=== PATIENT | male | born 1955 | race Hispanic/Latino ===

== ENCOUNTER 2020-01-29 11:03 | Outpatient (CLI) | payer MEDICARE ==
--- NOTE | 2020-01-29 11:19 | ULT ---
US Renal Bilateral STANDARD History: Renal failure Comparison: None Findings: Real-time grayscale and color evaluation of the kidneys and urinary bladder was performed. The right kidney measures 11.5 x 5.8 x 7.4 cm and the left kidney measures 10.3 x 5.5 x 6.4 cm. There is a septated cyst inferior pole right kidney measuring up to 2.1 cm. No mass, abnormal calcifications or hydronephrosis of either kidney. Urinary bladder volume is 113 mL. Impression: No evidence for obstructive uropathy.
== END 2020-01-29 11:04 | disposition home or self-care (01) ==
LOC: BICULT 11:03
PROVIDERS: ATTEND Internal Medicine Nephrology
DX: N18.3 Chronic kidney disease, stage 3 (moderate) (principal)
CPT/HCPCS: 76770

== ENCOUNTER 2022-12-12 20:41 | Inpatient (IN) | payer MEDICARE ==
[2022-12-12] MEDS ORDERED: Acetaminophen 500 MG TAB ONE (22:08)
[2022-12-12 22:41] LABS: #Monocytes 1.9 thou/uL (0.11-0.59); #Neutrophils 12.9 thou/uL (1.40-6.50); %Basophils 0.2 % (0.0-1.0); %Eosinophils 0.1 % (0.0-10.0); %Lymphocytes 8.8 % (21.0-51.0); %Monocytes 11.9 % (0.0-10.0); %Neutrophils 78.6 % (42.0-75.0); Hematocrit 32.5 % (42.0-52.0); Hemoglobin 10.3 g/dL (14.0-18.0); Mean Corpuscular HGB CONC 31.7 g/dL (32.0-36.0); Mean Corpuscular Hemoglobin 28.6 pg (27.0-31.0); Mean Corpuscular Volume 90.3 fl (78.0-98.0); Mean Platelet Volume 10.1 fL (7.4-10.4); Platelet Count 268 10x3/uL (130-400); RBC Distribution Width 14.4 % (11.5-14.5); White Blood Cell (WBC) Count 16.4 10x3/uL (4.8-10.8)
[2022-12-12 23:10] LABS: ALT (SGPT) 10 U/L (8-55); AST (SGOT) 22 U/L (5-34); Albumin 3.8 g/dL (3.4-4.8); Alkaline Phosphatase 84 U/L (40-110); Anion Gap 12 mmol/L (10-20); BUN (Urea Nitrogen) 23 mg/dL (8.4-25.7); Bilirubin, Total 0.8 mg/dL (0.2-1.2); Calc. Creatinine Clearance 0 mL/min (70-130); Calcium 8.8 mg/dL (7.8-10.44); Carbon Dioxide 25 mmol/L (23-31); Chloride 101 mmol/L (98-107); Estimated GFR 35; Globulin 3.4 g/dL (2.4-3.5); Glucose 135 mg/dL (80-115); Potassium 3.9 mmol/L (3.5-5.1); Protein, Total 7.2 g/dL (5.8-8.1); Sodium 134 mmol/L (136-145)
[2022-12-12] MEDS ORDERED: Lidocaine 1% w/Epinephrine 1:100K 20 ML VIAL ONE (23:46)
[2022-12-12] MEDS ORDERED: Cefepime 2 GM VIAL ONE (23:46)
[2022-12-12] MEDS ORDERED: Morphine 4 MG/ML VIAL ONE (23:46)
[2022-12-13 01:28] LABS: CKMB 1.5 ng/mL (0-6.6)
[2022-12-13] MEDS ORDERED: Dextrose 5% in Water 1,000 ML IV PRN (02:14)
[2022-12-13] MEDS ORDERED: Glucagon 1 MG/ML KIT IM PRN (02:14)
[2022-12-13] MEDS ORDERED: Dextrose 50% Abboject 50 ML SYRINGE SLOW IVP PRN (02:14)
[2022-12-13] MEDS ORDERED: Furosemide 20 MG/2 ML VIAL SLOW IVP SCH (02:15)
[2022-12-13 04:20] LABS: Hematocrit 32.1 % (42.0-52.0); Hemoglobin 10.1 g/dL (14.0-18.0); Mean Corpuscular HGB CONC 31.5 g/dL (32.0-36.0); Mean Corpuscular Hemoglobin 28.5 pg (27.0-31.0); Mean Corpuscular Volume 90.4 fl (78.0-98.0); Mean Platelet Volume 10.4 fL (7.4-10.4); Platelet Count 259 10x3/uL (130-400); RBC Distribution Width 14.4 % (11.5-14.5); Red Blood Cell (RBC) Count 3.55 mill/uL (4.70-6.10); White Blood Cell (WBC) Count 14.6 10x3/uL (4.8-10.8)
[2022-12-13 04:57] LABS: ALT (SGPT) 10 U/L (8-55); AST (SGOT) 23 U/L (5-34); Albumin 3.6 g/dL (3.4-4.8); Alkaline Phosphatase 81 U/L (40-110); Anion Gap 16 mmol/L (10-20); BUN (Urea Nitrogen) 24 mg/dL (8.4-25.7); Bilirubin, Total 0.6 mg/dL (0.2-1.2); Calc. Creatinine Clearance 0 mL/min (70-130); Calcium 8.8 mg/dL (7.8-10.44); Carbon Dioxide 22 mmol/L (23-31); Chloride 103 mmol/L (98-107); Estimated GFR 33; Glucose 116 mg/dL (80-115); Potassium 3.8 mmol/L (3.5-5.1); Protein, Total 7.6 g/dL (5.8-8.1); Sodium 137 mmol/L (136-145)
[2022-12-13 05:04] LABS: CKMB 2.7 ng/mL (0-6.6)
[2022-12-13] MEDS ORDERED: Iopamidol-370 76% 500 ML MDV (1 ML CHARGE) ONE (08:42)
[2022-12-13 09:10] LABS: CKMB 2.9 ng/mL (0-6.6)
[2022-12-13] MEDS ORDERED: Furosemide 40 MG/4 ML VIAL ONE (09:47)
[2022-12-13] MEDS: hydrALAZINE 25 MG TAB PO SCH ×3 (10:57→21:15)
[2022-12-13] MEDS: NIFEdipine XL 30 MG TAB PO SCH ×2 (10:57→16:53)
[2022-12-13] MEDS: Gabapentin 100 MG CAP PO SCH ×2 (10:57→21:15)
[2022-12-13] MEDS: Torsemide 20 MG TAB PO SCH ×2 (10:57→16:53)
[2022-12-13] MEDS ORDERED: Cefepime 2 GM in Sodium Chloride 0.9% 100 ML IVPB SCH (12:00)
[2022-12-13] MEDS ORDERED: Colchicine 0.6 MG TAB PO SCH ×3 (12:00→13:00)
[2022-12-13] MEDS ORDERED: Cefepime 2 GM VIAL ONE (14:05)
[2022-12-13 15:13] LABS: CKMB 3.1 ng/mL (0-6.6)
[2022-12-13] MEDS ORDERED: HYDROcodone/Acetaminophen 5/325 mg Tablet PO SCH (17:30)
[2022-12-13 18:34] VITALS: BMI 48.6
[2022-12-13 23:19] LABS: CKMB 2.6 ng/mL (0-6.6)
[2022-12-13] MEDS: HYDROcodone/Acetaminophen 5/325 mg Tablet PO PRN (23:36)
[2022-12-13] MEDS: Cefepime 1 GM in Sodium Chloride 0.9% 100 ML IVPB SCH (23:39)
[2022-12-14] MEDS ORDERED: VANCOMYCIN 2 GRAM/500 ML BAG 2 GM in Premix Bag 1 BAG IVPB SCH (01:00)
[2022-12-14] MEDS: HYDROcodone/Acetaminophen 5/325 mg Tablet PO PRN ×3 (05:11→20:51)
[2022-12-14] MEDS ORDERED: Lidocaine 1% (PF) 30 ML VIAL SC SCH (07:30)
[2022-12-14] MEDS: NIFEdipine XL 30 MG TAB PO SCH (10:50)
[2022-12-14] MEDS: hydrALAZINE 25 MG TAB PO SCH ×3 (10:51→20:50)
[2022-12-14] MEDS: Torsemide 20 MG TAB PO SCH (10:51)
[2022-12-14] MEDS: Colchicine 0.6 MG TAB PO SCH ×2 (10:51→20:49)
[2022-12-14] MEDS: Gabapentin 100 MG CAP PO SCH ×2 (10:51→20:46)
[2022-12-14] MEDS: Cefepime 1 GM in Sodium Chloride 0.9% 100 ML IVPB SCH ×2 (10:52→23:15)
[2022-12-14 11:25] LABS: Synovial Fluid, Protein 4.5 g/dL (Not Available)
[2022-12-14 12:10] LABS: Body Fluid Source Synovial Fluid; RBC Count-Automated (BF) 2384 /cu.mm; WBC/Nucleated-Auto (BF) 16504 /cu.mm
[2022-12-14 12:11] LABS: BF Color Yellow; Clarity Cloudy/Turbid (Clear); Tube # EDTA
[2022-12-14 14:26] LABS: BF Segmented Neutrophils 81 %; Cell Count Non Hematic 18 %; Lymphocytes 1 %
[2022-12-15 00:36] LABS: Vancomycin, Trough 23.4 ug/mL
[2022-12-15] MEDS ORDERED: VANCOMYCIN 2 GRAM/500 ML BAG 2 GM in Premix Bag 1 BAG IVPB SCH (01:00)
[2022-12-15] MEDS: HYDROcodone/Acetaminophen 5/325 mg Tablet PO PRN ×4 (03:59→18:04)
[2022-12-15 06:21] LABS: #Eosinphils 0.2 thou/uL (0.0-0.7); #Monocytes 1.4 thou/uL (0.11-0.59); #Neutrophils 8.3 thou/uL (1.40-6.50); %Basophils 0.4 % (0.0-1.0); %Eosinophils 2.2 % (0.0-10.0); %Lymphocytes 9.3 % (21.0-51.0); %Monocytes 12.7 % (0.0-10.0); %Neutrophils 74.9 % (42.0-75.0); Hematocrit 27.3 % (42.0-52.0); Hemoglobin 8.6 g/dL (14.0-18.0); Mean Corpuscular HGB CONC 31.5 g/dL (32.0-36.0); Mean Corpuscular Hemoglobin 28.4 pg (27.0-31.0); Mean Corpuscular Volume 90.1 fl (78.0-98.0); Mean Platelet Volume 10.7 fL (7.4-10.4); Platelet Count 251 10x3/uL (130-400); RBC Distribution Width 14.6 % (11.5-14.5); Red Blood Cell (RBC) Count 3.03 mill/uL (4.70-6.10); White Blood Cell (WBC) Count 11.1 10x3/uL (4.8-10.8)
[2022-12-15 06:47] LABS: Anion Gap 14 mmol/L (10-20); BUN (Urea Nitrogen) 36 mg/dL (8.4-25.7); Calc. Creatinine Clearance 49 mL/min (70-130); Calcium 8.7 mg/dL (7.8-10.44); Carbon Dioxide 25 mmol/L (23-31); Chloride 100 mmol/L (98-107); Estimated GFR 23; Glucose 127 mg/dL (80-115); Potassium 3.5 mmol/L (3.5-5.1); Sodium 135 mmol/L (136-145)
[2022-12-15] MEDS: NIFEdipine XL 30 MG TAB PO SCH (08:58)
[2022-12-15] MEDS: hydrALAZINE 25 MG TAB PO SCH ×3 (08:59→20:46)
[2022-12-15] MEDS: Torsemide 20 MG TAB PO SCH (08:59)
[2022-12-15] MEDS: Colchicine 0.6 MG TAB PO SCH ×2 (09:00→20:47)
[2022-12-15] MEDS: Gabapentin 100 MG CAP PO SCH ×2 (09:00→20:46)
[2022-12-15] MEDS: Cefepime 1 GM in Sodium Chloride 0.9% 100 ML IVPB SCH ×2 (11:10→22:05)
[2022-12-15 12:45] LABS: Vancomycin, Trough 19.7 ug/mL
[2022-12-15] MEDS ORDERED: Vancomycin Dose by Levels Sliding Scale (Wt > 99) FS SCH (13:15)
[2022-12-15] MEDS: Heparin 5,000 UNITS/ML VIAL SC SCH (20:46)
[2022-12-16 00:58] LABS: Vancomycin, Random 17.5 ug/mL (See Comment)
[2022-12-16] MEDS ORDERED: Vancomycin HCl 750 MG in Sodium Chloride 0.9% 250 ML 250 ML IVPB SCH (01:30)
[2022-12-16 05:47] LABS: #Eosinphils 0.4 thou/uL (0.0-0.7); #Monocytes 1.2 thou/uL (0.11-0.59); #Neutrophils 6.7 thou/uL (1.40-6.50); %Basophils 0.3 % (0.0-1.0); %Eosinophils 4.5 % (0.0-10.0); %Monocytes 12.5 % (0.0-10.0); %Neutrophils 71.3 % (42.0-75.0); Hematocrit 29.7 % (42.0-52.0); Hemoglobin 9.3 g/dL (14.0-18.0); Mean Corpuscular HGB CONC 31.3 g/dL (32.0-36.0); Mean Corpuscular Volume 89.5 fl (78.0-98.0); Mean Platelet Volume 10.5 fL (7.4-10.4); Platelet Count 292 10x3/uL (130-400); RBC Distribution Width 14.6 % (11.5-14.5); Red Blood Cell (RBC) Count 3.32 mill/uL (4.70-6.10); White Blood Cell (WBC) Count 9.4 10x3/uL (4.8-10.8)
[2022-12-16 06:14] LABS: Anion Gap 14 mmol/L (10-20); BUN (Urea Nitrogen) 44 mg/dL (8.4-25.7); Calc. Creatinine Clearance 42 mL/min (70-130); Calcium 8.9 mg/dL (7.8-10.44); Carbon Dioxide 24 mmol/L (23-31); Chloride 99 mmol/L (98-107); Estimated GFR 19; Glucose 133 mg/dL (80-115); Potassium 3.6 mmol/L (3.5-5.1); Sodium 133 mmol/L (136-145)
[2022-12-16] MEDS: Colchicine 0.6 MG TAB PO SCH (09:15)
[2022-12-16] MEDS: hydrALAZINE 25 MG TAB PO SCH ×3 (09:15→20:03)
[2022-12-16] MEDS: Gabapentin 100 MG CAP PO SCH ×2 (09:15→20:02)
[2022-12-16] MEDS: NIFEdipine XL 30 MG TAB PO SCH (09:15)
[2022-12-16] MEDS: Heparin 5,000 UNITS/ML VIAL SC SCH ×3 (09:16→20:04)
[2022-12-16] MEDS: HYDROcodone/Acetaminophen 5/325 mg Tablet PO PRN ×2 (09:20→20:03)
[2022-12-16] MEDS ORDERED: Senokot S 8.6-50 MG TAB PO SCH (10:15)
[2022-12-16] MEDS ORDERED: Polyethylene Glycol 3350 17 GM Packet PO SCH (10:15)
[2022-12-16] MEDS: Cefepime 1 GM in Sodium Chloride 0.9% 100 ML IVPB SCH (11:00)
[2022-12-16] MEDS: Sodium Chloride 0.9% 1,000 ML IV SCH (11:00)
[2022-12-16 13:03] LABS: Bacteria/HPF 2+ HPF (None Seen); Bilirubin Negative (Negative); Blood, Urine 1+ (Negative); Clarity Clear (Clear); Glucose, Urine (Dipstick) Normal (Negative); Ketone, Urine Negative (Negative); Leukocyte Negative Leu/uL (Negative); Nitrite Negative (Negative); Protein, Urine (Dipstick) 100 mg/dL (Neg-Trace); RBC/HPF 0-3 HPF (0-3); Specific Gravity, Urine 1.012 (1.002-1.036); Squamous Epithelial None Seen HPF (0-3); Urobilinogen Normal mg/dL (Less than 2); WBC/HPF 0-3 HPF (0-3); pH, Urine 5.5 (5.0-9.0)
[2022-12-16] MEDS: Senokot S 8.6-50 MG TAB PO SCH (20:03)
[2022-12-17] MEDS: Cefepime 1 GM in Sodium Chloride 0.9% 100 ML IVPB SCH (00:11)
[2022-12-17] MEDS: Sodium Chloride 0.9% 1,000 ML IV SCH ×2 (00:11→14:54)
[2022-12-17 06:35] LABS: #Eosinphils 0.4 thou/uL (0.0-0.7); #Neutrophils 5.7 thou/uL (1.40-6.50); %Basophils 0.5 % (0.0-1.0); %Lymphocytes 10.1 % (21.0-51.0); %Monocytes 12.1 % (0.0-10.0); %Neutrophils 71.5 % (42.0-75.0); Hemoglobin 9.7 g/dL (14.0-18.0); Mean Corpuscular HGB CONC 32.3 g/dL (32.0-36.0); Mean Corpuscular Volume 89.8 fl (78.0-98.0); Mean Platelet Volume 10.6 fL (7.4-10.4); Platelet Count 356 10x3/uL (130-400); RBC Distribution Width 14.6 % (11.5-14.5); Red Blood Cell (RBC) Count 3.34 mill/uL (4.70-6.10)
[2022-12-17 06:55] LABS: Anion Gap 15 mmol/L (10-20); BUN (Urea Nitrogen) 42 mg/dL (8.4-25.7); Calc. Creatinine Clearance 50 mL/min (70-130); Calcium 8.9 mg/dL (7.8-10.44); Carbon Dioxide 24 mmol/L (23-31); Chloride 102 mmol/L (98-107); Estimated GFR 24; Glucose 124 mg/dL (80-115); Potassium 3.8 mmol/L (3.5-5.1); Sodium 137 mmol/L (136-145)
[2022-12-17] MEDS ORDERED: Polyethylene Glycol 3350 17 GM Packet PO SCH (09:00)
[2022-12-17] MEDS: NIFEdipine XL 30 MG TAB PO SCH ×2 (09:01→19:58)
[2022-12-17] MEDS: hydrALAZINE 25 MG TAB PO SCH ×3 (09:01→19:57)
[2022-12-17] MEDS: Heparin 5,000 UNITS/ML VIAL SC SCH ×3 (09:02→19:58)
[2022-12-17] MEDS: Gabapentin 100 MG CAP PO SCH ×2 (09:02→19:57)
[2022-12-17] MEDS: Colchicine 0.6 MG TAB PO SCH (09:02)
[2022-12-17] MEDS: Senokot S 8.6-50 MG TAB PO SCH ×2 (09:03→19:58)
[2022-12-17] MEDS: HYDROcodone/Acetaminophen 5/325 mg Tablet PO PRN ×2 (12:46→18:20)
[2022-12-17] MEDS ORDERED: predniSONE 20 MG TAB PO SCH (15:00)
[2022-12-17] MEDS: Polyethylene Glycol 3350 17 GM Packet PO SCH (19:58)
[2022-12-18] MEDS ORDERED: hydrALAZINE 20 MG/ML VIAL SLOW IVP SCH (01:15)
[2022-12-18] MEDS: Sodium Chloride 0.9% 1,000 ML IV SCH ×2 (05:16→08:30)
[2022-12-18] MEDS: HYDROcodone/Acetaminophen 5/325 mg Tablet PO PRN ×3 (05:37→23:23)
[2022-12-18 06:52] LABS: #Monocytes 0.5 thou/uL (0.11-0.59); #Neutrophils 8.2 thou/uL (1.40-6.50); %Basophils 0.2 % (0.0-1.0); %Lymphocytes 6.9 % (21.0-51.0); %Monocytes 5.6 % (0.0-10.0); %Neutrophils 86.6 % (42.0-75.0); Hematocrit 29.7 % (42.0-52.0); Hemoglobin 9.2 g/dL (14.0-18.0); Mean Corpuscular Hemoglobin 28.3 pg (27.0-31.0); Mean Corpuscular Volume 91.4 fl (78.0-98.0); Mean Platelet Volume 10.4 fL (7.4-10.4); Platelet Count 400 10x3/uL (130-400); RBC Distribution Width 14.5 % (11.5-14.5); Red Blood Cell (RBC) Count 3.25 mill/uL (4.70-6.10); White Blood Cell (WBC) Count 9.5 10x3/uL (4.8-10.8)
[2022-12-18 07:17] LABS: Anion Gap 14 mmol/L (10-20); BUN (Urea Nitrogen) 37 mg/dL (8.4-25.7); Calc. Creatinine Clearance 61 mL/min (70-130); Calcium 9.2 mg/dL (7.8-10.44); Carbon Dioxide 23 mmol/L (23-31); Chloride 102 mmol/L (98-107); Estimated GFR 30; Glucose 138 mg/dL (80-115); Potassium 4.1 mmol/L (3.5-5.1); Sodium 135 mmol/L (136-145)
[2022-12-18] MEDS: NIFEdipine XL 30 MG TAB PO SCH ×2 (08:32→21:08)
[2022-12-18] MEDS: Heparin 5,000 UNITS/ML VIAL SC SCH ×3 (08:32→21:08)
[2022-12-18] MEDS: Senokot S 8.6-50 MG TAB PO SCH ×2 (08:32→21:07)
[2022-12-18] MEDS: Polyethylene Glycol 3350 17 GM Packet PO SCH ×2 (08:32→21:28)
[2022-12-18] MEDS: Colchicine 0.6 MG TAB PO SCH (08:32)
[2022-12-18] MEDS: predniSONE 20 MG TAB PO SCH (08:32)
[2022-12-18] MEDS: hydrALAZINE 25 MG TAB PO SCH ×3 (08:33→21:07)
[2022-12-18] MEDS: Gabapentin 100 MG CAP PO SCH ×2 (08:33→21:07)
[2022-12-19] MEDS: HYDROcodone/Acetaminophen 5/325 mg Tablet PO PRN ×2 (06:41→22:08)
[2022-12-19 07:19] LABS: #Eosinphils 0.1 thou/uL (0.0-0.7); #Neutrophils 7.8 thou/uL (1.40-6.50); %Basophils 0.4 % (0.0-1.0); %Eosinophils 0.9 % (0.0-10.0); %Lymphocytes 12.4 % (21.0-51.0); %Monocytes 9.5 % (0.0-10.0); %Neutrophils 75.5 % (42.0-75.0); Hematocrit 31.5 % (42.0-52.0); Hemoglobin 9.8 g/dL (14.0-18.0); Mean Corpuscular HGB CONC 31.1 g/dL (32.0-36.0); Mean Corpuscular Hemoglobin 28.6 pg (27.0-31.0); Mean Corpuscular Volume 91.8 fl (78.0-98.0); Mean Platelet Volume 9.9 fL (7.4-10.4); Platelet Count 454 10x3/uL (130-400); RBC Distribution Width 14.4 % (11.5-14.5); Red Blood Cell (RBC) Count 3.43 mill/uL (4.70-6.10); White Blood Cell (WBC) Count 10.4 10x3/uL (4.8-10.8)
[2022-12-19 07:56] LABS: Anion Gap 14 mmol/L (10-20); BUN (Urea Nitrogen) 34 mg/dL (8.4-25.7); Calc. Creatinine Clearance 66 mL/min (70-130); Calcium 9.4 mg/dL (7.8-10.44); Carbon Dioxide 26 mmol/L (23-31); Chloride 102 mmol/L (98-107); Estimated GFR 33; Glucose 112 mg/dL (80-115); Potassium 3.8 mmol/L (3.5-5.1); Sodium 138 mmol/L (136-145)
[2022-12-19] MEDS: Gabapentin 100 MG CAP PO SCH ×2 (09:31→22:05)
[2022-12-19] MEDS: Colchicine 0.6 MG TAB PO SCH (09:31)
[2022-12-19] MEDS: predniSONE 20 MG TAB PO SCH (09:31)
[2022-12-19] MEDS: Polyethylene Glycol 3350 17 GM Packet PO SCH ×2 (09:32→22:06)
[2022-12-19] MEDS: NIFEdipine XL 30 MG TAB PO SCH ×2 (09:32→22:06)
[2022-12-19] MEDS: hydrALAZINE 25 MG TAB PO SCH ×3 (09:32→22:04)
[2022-12-19] MEDS: Heparin 5,000 UNITS/ML VIAL SC SCH ×4 (09:32→22:25)
[2022-12-19] MEDS: Senokot S 8.6-50 MG TAB PO SCH ×2 (09:32→22:06)
[2022-12-19] MEDS: HumaLOG 300 UNITS/3 ML VIAL SC PRN ×2 (17:00→22:03)
[2022-12-20 07:04] LABS: #Basophils 0.1 thou/uL (0.0-0.2); #Eosinphils 0.2 thou/uL (0.0-0.7); #Monocytes 0.9 thou/uL (0.11-0.59); #Neutrophils 7.5 thou/uL (1.40-6.50); %Basophils 0.6 % (0.0-1.0); %Eosinophils 1.5 % (0.0-10.0); %Lymphocytes 14.6 % (21.0-51.0); %Monocytes 8.5 % (0.0-10.0); Hematocrit 32.3 % (42.0-52.0); Hemoglobin 10.1 g/dL (14.0-18.0); Mean Corpuscular HGB CONC 31.3 g/dL (32.0-36.0); Mean Corpuscular Hemoglobin 28.5 pg (27.0-31.0); Mean Platelet Volume 9.5 fL (7.4-10.4); Platelet Count 462 10x3/uL (130-400); RBC Distribution Width 14.4 % (11.5-14.5); Red Blood Cell (RBC) Count 3.55 mill/uL (4.70-6.10); White Blood Cell (WBC) Count 10.3 10x3/uL (4.8-10.8)
[2022-12-20 07:32] LABS: Anion Gap 12 mmol/L (10-20); BUN (Urea Nitrogen) 31 mg/dL (8.4-25.7); Calc. Creatinine Clearance 75 mL/min (70-130); Calcium 9.4 mg/dL (7.8-10.44); Carbon Dioxide 26 mmol/L (23-31); Chloride 103 mmol/L (98-107); Estimated GFR 39; Glucose 100 mg/dL (80-115); Potassium 3.7 mmol/L (3.5-5.1); Sodium 137 mmol/L (136-145)
[2022-12-20] MEDS: predniSONE 20 MG TAB PO SCH (09:54)
[2022-12-20] MEDS: Gabapentin 100 MG CAP PO SCH ×2 (09:54→22:25)
[2022-12-20] MEDS: hydrALAZINE 25 MG TAB PO SCH ×3 (09:54→22:26)
[2022-12-20] MEDS: Heparin 5,000 UNITS/ML VIAL SC SCH ×3 (09:55→22:24)
[2022-12-20] MEDS: Colchicine 0.6 MG TAB PO SCH (09:55)
[2022-12-20] MEDS: Senokot S 8.6-50 MG TAB PO SCH ×2 (09:55→22:24)
[2022-12-20] MEDS: HYDROcodone/Acetaminophen 5/325 mg Tablet PO PRN ×3 (09:55→22:28)
[2022-12-20] MEDS: NIFEdipine XL 30 MG TAB PO SCH ×2 (09:55→22:27)
[2022-12-20] MEDS: Polyethylene Glycol 3350 17 GM Packet PO SCH ×2 (09:55→22:27)
[2022-12-21 06:24] LABS: #Basophils 0.1 thou/uL (0.0-0.2); #Eosinphils 0.3 thou/uL (0.0-0.7); #Neutrophils 6.2 thou/uL (1.40-6.50); %Basophils 0.8 % (0.0-1.0); %Eosinophils 2.7 % (0.0-10.0); %Monocytes 10.3 % (0.0-10.0); %Neutrophils 65.9 % (42.0-75.0); Hemoglobin 10.2 g/dL (14.0-18.0); Mean Corpuscular HGB CONC 30.9 g/dL (32.0-36.0); Mean Corpuscular Hemoglobin 27.9 pg (27.0-31.0); Mean Corpuscular Volume 90.4 fl (78.0-98.0); Mean Platelet Volume 9.6 fL (7.4-10.4); Platelet Count 454 10x3/uL (130-400); RBC Distribution Width 14.5 % (11.5-14.5); Red Blood Cell (RBC) Count 3.65 mill/uL (4.70-6.10); White Blood Cell (WBC) Count 9.3 10x3/uL (4.8-10.8)
[2022-12-21 06:45] LABS: Anion Gap 15 mmol/L (10-20); BUN (Urea Nitrogen) 31 mg/dL (8.4-25.7); Calc. Creatinine Clearance 73 mL/min (70-130); Calcium 9.3 mg/dL (7.8-10.44); Carbon Dioxide 26 mmol/L (23-31); Chloride 102 mmol/L (98-107); Estimated GFR 37; Glucose 107 mg/dL (80-115); Potassium 3.6 mmol/L (3.5-5.1); Sodium 139 mmol/L (136-145)
[2022-12-21] MEDS: Heparin 5,000 UNITS/ML VIAL SC SCH ×3 (09:39→20:03)
[2022-12-21] MEDS: NIFEdipine XL 30 MG TAB PO SCH ×2 (09:39→20:01)
[2022-12-21] MEDS: Sertraline 25 MG TAB PO SCH (09:39)
[2022-12-21] MEDS: Gabapentin 100 MG CAP PO SCH ×2 (09:39→20:02)
[2022-12-21] MEDS: predniSONE 20 MG TAB PO SCH (09:39)
[2022-12-21] MEDS: Calcitriol 0.25 MCG CAP PO SCH (09:39)
[2022-12-21] MEDS: Colchicine 0.6 MG TAB PO SCH (09:39)
[2022-12-21] MEDS: glipiZIDE 10 MG TAB PO SCH (09:39)
[2022-12-21] MEDS: Propranolol HCl LA 80 MG CAP PO SCH (09:40)
[2022-12-21] MEDS: Senokot S 8.6-50 MG TAB PO SCH ×2 (09:40→20:01)
[2022-12-21] MEDS: hydrALAZINE 25 MG TAB PO SCH ×3 (09:40→20:02)
[2022-12-21] MEDS: Polyethylene Glycol 3350 17 GM Packet PO SCH ×2 (09:40→20:03)
[2022-12-21] MEDS: Pioglitazone HCl 15 MG TAB PO SCH (09:40)
[2022-12-21 13:28] LABS: Phosphorus 2.1 mg/dL (2.3-4.7)
[2022-12-22 06:55] LABS: #Basophils 0.1 thou/uL (0.0-0.2); #Eosinphils 0.3 thou/uL (0.0-0.7); #Monocytes 0.8 thou/uL (0.11-0.59); #Neutrophils 6.8 thou/uL (1.40-6.50); %Basophils 0.6 % (0.0-1.0); %Eosinophils 2.7 % (0.0-10.0); %Lymphocytes 17.1 % (21.0-51.0); %Monocytes 8.5 % (0.0-10.0); %Neutrophils 68.7 % (42.0-75.0); Hematocrit 33.1 % (42.0-52.0); Hemoglobin 10.3 g/dL (14.0-18.0); Mean Corpuscular HGB CONC 31.1 g/dL (32.0-36.0); Mean Corpuscular Hemoglobin 28.4 pg (27.0-31.0); Mean Corpuscular Volume 91.2 fl (78.0-98.0); Mean Platelet Volume 9.7 fL (7.4-10.4); Platelet Count 474 10x3/uL (130-400); RBC Distribution Width 14.6 % (11.5-14.5); Red Blood Cell (RBC) Count 3.63 mill/uL (4.70-6.10); White Blood Cell (WBC) Count 9.9 10x3/uL (4.8-10.8)
[2022-12-22 07:22] LABS: Anion Gap 13 mmol/L (10-20); BUN (Urea Nitrogen) 32 mg/dL (8.4-25.7); Calc. Creatinine Clearance 79 mL/min (70-130); Calcium 9.5 mg/dL (7.8-10.44); Carbon Dioxide 29 mmol/L (23-31); Chloride 101 mmol/L (98-107); Estimated GFR 41; Glucose 98 mg/dL (80-115); Potassium 3.6 mmol/L (3.5-5.1); Sodium 139 mmol/L (136-145)
[2022-12-22 08:03] VITALS: TEMP 98.7
[2022-12-22] MEDS: Pioglitazone HCl 15 MG TAB PO SCH (08:07)
[2022-12-22] MEDS: Propranolol HCl LA 80 MG CAP PO SCH (08:07)
[2022-12-22] MEDS: glipiZIDE 10 MG TAB PO SCH (08:08)
[2022-12-22] MEDS: hydrALAZINE 25 MG TAB PO SCH (08:08)
[2022-12-22] MEDS: Sertraline 25 MG TAB PO SCH (08:08)
[2022-12-22] MEDS: Polyethylene Glycol 3350 17 GM Packet PO SCH (08:08)
[2022-12-22] MEDS: Torsemide 20 MG TAB PO SCH (08:09)
[2022-12-22] MEDS: Calcitriol 0.25 MCG CAP PO SCH (08:09)
[2022-12-22] MEDS: NIFEdipine XL 30 MG TAB PO SCH (08:09)
[2022-12-22] MEDS: Gabapentin 100 MG CAP PO SCH (08:09)
[2022-12-22] MEDS: predniSONE 20 MG TAB PO SCH (08:09)
[2022-12-22] MEDS: Senokot S 8.6-50 MG TAB PO SCH (08:10)
[2022-12-22] MEDS: Heparin 5,000 UNITS/ML VIAL SC SCH (08:10)
[2022-12-22] MEDS: Colchicine 0.6 MG TAB PO SCH (08:10)
[2022-12-22 10:09] VITALS: BP 147/74
[2022-12-29] MEDS ORDERED: Ergocalciferol 1.25 MG(50,000 UNITS) CAP PO SCH (09:00)
== END 2022-12-22 10:11 | DRG 871 ==
LOC: ERS 20:41 → ERHOLD 12-13 02:59 → 2NO 12-13 16:30 → T4-B 12-14 16:20
PROVIDERS: ADMIT Internal Medicine Nephrology; ATTEND Internal Medicine
PROC: 3E03329 Introduction of Other Anti-infective into Peripheral Vein, Percutaneous Approach (ICD-10-PCS; 2022-12-13)
PROC: 0S9D3ZX Drainage of Left Knee Joint, Percutaneous Approach, Diagnostic (ICD-10-PCS; principal; 2022-12-14)
DX: A41.9 Sepsis, unspecified organism (principal); J96.01 Acute respiratory failure with hypoxia; M00.9 Pyogenic arthritis, unspecified; L03.115 Cellulitis of right lower limb; Z68.42 Body mass index [BMI] 45.0-49.9, adult; N18.4 Chronic kidney disease, stage 4 (severe); N17.9 Acute kidney failure, unspecified; E87.1 Hypo-osmolality and hyponatremia; N25.81 Secondary hyperparathyroidism of renal origin; E11.22 Type 2 diabetes mellitus with diabetic chronic kidney disease; I12.9 Hypertensive chronic kidney disease with stage 1 through stage 4 chronic kidney disease, or unspecified chronic kidney disease; Z79.899 Other long term (current) drug therapy; M25.462 Effusion, left knee; M19.071 Primary osteoarthritis, right ankle and foot; E66.01 Morbid (severe) obesity due to excess calories; D63.1 Anemia in chronic kidney disease; M10.9 Gout, unspecified; K59.00 Constipation, unspecified
CPT/HCPCS: 20611; 36415; 36416; 71045; 76770; 80048; 80053; 80202; 81001; 82306; 82553; 82945; 83605; 83880; 83970; 84100; 84157; 84484; 84550; 85025; 85027; 85060; 85652; 86140; 87040; 87070; 87086; 87205; 89051; 89060; 93005; 96365; 96366; 96367; 96375; J0692; J1644; J1815; J1940; J2001; J2270; J3370; J3490; J7030; J7050; J7512; Q9967

== ENCOUNTER 2023-01-28 09:03 | Emergency (ER) | payer MEDICARE | END 2023-01-28 11:42 | disposition home or self-care (01) | LOC: ERS 09:03 | DX: M25.512 Pain in left shoulder (principal); R07.89 Other chest pain; I10 Essential (primary) hypertension; E11.9 Type 2 diabetes mellitus without complications; Z79.899 Other long term (current) drug therapy; W18.30XA Fall on same level, unspecified, initial encounter | CPT/HCPCS: 71045 ==

== ENCOUNTER 2023-03-20 17:00 | Outpatient (CLI) | payer MEDICARE | END 2023-03-20 17:01 | disposition home or self-care (01) | LOC: SLEEPLAB 17:00 | PROVIDERS: ATTEND Nurse Practitioner Family | DX: G47.33 Obstructive sleep apnea (adult) (pediatric) (principal); E66.9 Obesity, unspecified; I10 Essential (primary) hypertension; E11.9 Type 2 diabetes mellitus without complications; R06.83 Snoring; G47.00 Insomnia, unspecified | CPT/HCPCS: 95800 ==

== ENCOUNTER 2024-02-25 11:51 | Inpatient (IN) | payer MEDICARE ==
[2024-02-25 13:31] LABS: #Basophils 0.04 10x3/uL (0.0-0.2); %Basophils 0.5 % (0.0-1.0); %Eosinophils 3.5 % (0.0-10.0); %Lymphocytes 15.7 % (21.0-51.0); %Monocytes 6.5 % (0.0-10.0); %Neutrophils 73.4 % (42.0-75.0); Hematocrit 37.5 % (42.0-52.0); Hemoglobin 11.8 g/dL (14.0-18.0); Mean Corpuscular HGB CONC 31.5 g/dL (32.0-36.0); Mean Corpuscular Volume 95.4 fL (78.0-98.0); Mean Platelet Volume 10.3 fL (7.4-10.4); Platelet Count 240 10x3/uL (130-400); RBC Distribution Width 14.6 % (11.5-14.5); Red Blood Cell (RBC) Count 3.93 mill/uL (4.70-6.10)
[2024-02-25 13:54] LABS: Troponin I 0.055 ng/mL (< 0.028)
[2024-02-25 13:55] LABS: ALT (SGPT) 17 U/L (8-55); AST (SGOT) 25 U/L (5-34); Albumin 4.2 g/dL (3.4-4.8); Alkaline Phosphatase 119 U/L (40-110); Anion Gap 16 mmol/L (10-20); BUN (Urea Nitrogen) 30 mg/dL (8.4-25.7); Bilirubin, Total 0.4 mg/dL (0.2-1.2); Calc. Creatinine Clearance 0 mL/min (70-130); Calcium 9.8 mg/dL (7.8-10.44); Carbon Dioxide 27 mmol/L (23-31); Chloride 106 mmol/L (98-107); Estimated GFR 28; Globulin 3.1 g/dL (2.4-3.5); Glucose 128 mg/dL (80-115); Protein, Total 7.3 g/dL (5.8-8.1); Sodium 145 mmol/L (136-145)
[2024-02-25] MEDS ORDERED: Furosemide 40 MG (4 mL) VIAL ONE (14:01)
[2024-02-25 14:13] LABS: Phosphorus 2.3 mg/dL (2.3-4.7)
[2024-02-25] MEDS ORDERED: Aspirin Chewable 81 MG TAB ONE (15:04)
[2024-02-25] MEDS ORDERED: Acetaminophen 325 MG TAB PO PRN (16:07)
[2024-02-25] MEDS ORDERED: Glucagon 1 MG/ML KIT IM PRN (16:13)
[2024-02-25] MEDS ORDERED: Insulin Lispro 100 UNIT/ML 10 ML VIAL SC PRN (16:13)
[2024-02-25] MEDS ORDERED: Dextrose 50% Abboject 50 ML SYRINGE SLOW IVP PRN (16:13)
[2024-02-25] MEDS ORDERED: Dextrose 5% in Water 1,000 ML IV PRN (16:13)
[2024-02-25 16:34] LABS: Troponin I 0.064 ng/mL (< 0.028)
[2024-02-25 16:58] VITALS: BMI 52.1
[2024-02-25] MEDS: Gabapentin 100 MG CAP PO SCH (21:16)
[2024-02-25] MEDS: Atorvastatin Calcium 40 MG TAB PO SCH (21:16)
[2024-02-25] MEDS: hydrALAZINE 25 MG TAB PO SCH (21:17)
[2024-02-26 04:50] LABS: Anion Gap 14 mmol/L (10-20); BUN (Urea Nitrogen) 33 mg/dL (8.4-25.7); Calc. Creatinine Clearance 53 mL/min (70-130); Calcium 9.6 mg/dL (7.8-10.44); Carbon Dioxide 28 mmol/L (23-31); Chloride 106 mmol/L (98-107); Estimated GFR 25; Glucose 99 mg/dL (80-115); Potassium 3.6 mmol/L (3.5-5.1); Sodium 144 mmol/L (136-145)
[2024-02-26] MEDS: Furosemide 40 MG (4 mL) VIAL SLOW IVP SCH (06:05)
[2024-02-26 08:40] LABS: Creatinine, Urine 116.89 mg/dL (63-166)
[2024-02-26] MEDS: Sertraline 25 MG TAB PO SCH (09:19)
[2024-02-26] MEDS: Enoxaparin 40 MG (0.4 mL) SYRINGE SC SCH (09:19)
[2024-02-26] MEDS ORDERED: Colchicine 0.6 MG TAB PO PRN (09:49)
[2024-02-26] MEDS: Losartan 25 MG TAB PO SCH (11:49)
[2024-02-26] MEDS: Propranolol 40 MG TAB PO SCH (21:30)
[2024-02-27] MEDS ORDERED: Calcitriol 0.25 MCG CAP PO SCH (09:00)
[2024-02-27] MEDS: Losartan 25 MG TAB PO SCH (09:27)
[2024-02-27] MEDS: Allopurinol 300 MG TAB PO SCH (09:27)
[2024-02-27] MEDS: Calcitriol 0.25 MCG CAP PO SCH (09:28)
[2024-02-27] MEDS: Enoxaparin 30 MG (0.3 mL) SYRINGE SC SCH (09:35)
[2024-02-27 11:01] LABS: Anion Gap 16 mmol/L (10-20); BUN (Urea Nitrogen) 40 mg/dL (8.4-25.7); Calc. Creatinine Clearance 50 mL/min (70-130); Calcium 10.3 mg/dL (7.8-10.44); Carbon Dioxide 30 mmol/L (23-31); Chloride 101 mmol/L (98-107); Estimated GFR 24; Glucose 153 mg/dL (80-115); Potassium 3.9 mmol/L (3.5-5.1); Sodium 143 mmol/L (136-145)
[2024-02-27 12:44] VITALS: BP 138/75
[2024-02-27 12:52] VITALS: TEMP 97.9
[2024-02-27 16:12] LABS: Albumin 3.6 g/dL (2.9-4.4); Alpha 1 0.3 g/dL (0.0-0.4); Beta 1.2 g/dL (0.7-1.3); Gamma 1.2 g/dL (0.4-1.8); Globulin, Total 3.6 g/dL (2.2-3.9); M-Spike Not Observed g/dL (Not Observed)
[2024-02-28 16:36] LABS: Albumin-Ur 65.9 % (.); Alpha 1 - Ur 1.9 % (.); Alpha 2 - Ur 5.7 % (.); Beta-Ur 16.2 % (.); Gamma-Ur 10.2 % (.); M-Spike,% Not Observed % (Not Observed); Protein, Urine 177.6 mg/dL (Not Estab.)
[2024-03-03] MEDS ORDERED: Ergocalciferol 1.25 MG(50,000 UNITS) CAP PO SCH (09:00)
== END 2024-02-27 14:23 | disposition home or self-care (01) | DRG 641 ==
LOC: ERS 11:51 → ERHOLD 15:10 → 2SE 17:24 → OBSVTOIN 02-26 16:39
PROVIDERS: ADMIT Internal Medicine; ATTEND Hospitalist
DX: E87.70 Fluid overload, unspecified (principal); N17.9 Acute kidney failure, unspecified; Z68.43 Body mass index [BMI] 50.0-59.9, adult; N18.4 Chronic kidney disease, stage 4 (severe); N25.81 Secondary hyperparathyroidism of renal origin; E11.22 Type 2 diabetes mellitus with diabetic chronic kidney disease; M10.9 Gout, unspecified; Z79.899 Other long term (current) drug therapy; E66.01 Morbid (severe) obesity due to excess calories; G47.33 Obstructive sleep apnea (adult) (pediatric); D63.1 Anemia in chronic kidney disease; R77.8 Other specified abnormalities of plasma proteins; I12.9 Hypertensive chronic kidney disease with stage 1 through stage 4 chronic kidney disease, or unspecified chronic kidney disease
CPT/HCPCS: 36415; 36416; 71045; 76770; 78451; 80048; 80053; 82306; 82570; 83880; 83970; 84100; 84155; 84156; 84165; 84166; 84484; 85025; 85379; 93005; 93306; 93970; 96372; 96376; A9540; G0378; J1650; J1940